=== PATIENT | female | born 1960 | race Hispanic/Latino ===

== ENCOUNTER 2018-05-13 15:03 | Emergency (ER) | payer BC ==
[2018-05-13 15:06] VITALS: BMI 21.0
--- NOTE | 2018-05-13 15:55 | ED PDOC ---
Arrival/HPI - General Chief Complaint: GI Problem Time Seen by Provider: 05/13/18 15:05 Historian: Patient - History of Present Illness Narrative History of Present Illness (Text): 05/13/18 15:55 A 58 year old female with a past medical history of hemorrhoids presents to the emergency department complaining of diarrhea and vaginal discharge since last Wednesday. Patient reports associated fevers and body aches. Patient reports going to an Urgent Care center on Wednesday for continued constant diarrhea episodes and was prescribed medication for the diarrhea which the patient sates worked. Patient notes that earlier in the week she felt a hemorrhoid and noticed a yellow green vaginal discharge but no itching noted. Today, patient states she started seeing blood and clots in the toilet and she is unsure whether the blood was from her vagina or rectum. Patient also noted pain upon bowel movement and notes no active bleeding. Patient denies any history of STDs. Patient denies any dysuria, nausea, vomiting, abdominal pain, joint pain, rashes, or any other complaints. PMD: José Miguel Smith Time/Duration: Other (few days) Symptom Onset: Gradual Symptom Course: Unchanged Activities at Onset: Light Context: Home Past Medical History - Provider Review Nursing Documentation Reviewed: Yes - Travel History Have you recently traveled outside [place] w/in the past 3 mons?: No - Infectious Disease Hx of Infectious Diseases: None - Tetanus Immunization Tetanus Immunization: Unknown - Reproductive Menopause: Yes - Past Medical History Past Medical History: No Previous - Psychiatric Hx Depression: No Hx Emotional Abuse: No Hx Physical Abuse: No Hx Substance Use: No - Surgical History Hx Section: Yes Hx Tonsillectomy: Yes - Anesthesia Hx Anesthesia: Yes Hx Anesthesia Reactions: No Hx Malignant Hyperthermia: No - Suicidal Assessment Feels Threatened In Home Enviroment: No Family/Social History - Physician Review Nursing Documentation Reviewed: Yes Family/Social History: No Known Family HX Smoking Status: Never Smoked Hx Alcohol Use: No Hx Substance Use: No Allergies/Home Meds Allergies/Adverse Reactions: Allergies No Known Allergies Allergy (Verified 06/14/13 16:13) Review of Systems - Physician Review All systems were reviewed & negative as marked: Yes - Review of Systems Constitutional: Fevers Gastrointestinal: Diarrhea. absent: Abdominal Pain, Nausea, Vomiting Genitourinary Female: Vaginal Discharge (yellow green discharge and blood with clots). absent: Dysuria Musculoskeletal: Myalgias. absent: Other (joint pain) Skin: absent: Rash Physical Exam Vital Signs Reviewed: Yes Blood Pressure: Normal Pulse: Regular Respiratory Rate: Normal Appearance: Positive for: Well-Appearing, Non-Toxic Mental Status: Positive for: Alert and Oriented X 3 - Systems Exam Head: Present: Atraumatic, Normocephalic Pupils: Present: PERRL Extroacular Muscles: Present: EOMI Conjunctiva: Present: Normal Respiratory/Chest: Present: Clear to Auscultation, Good Air Exchange. No: Respiratory Distress, Accessory Muscle Use Cardiovascular: Present: Regular Rate and Rhythm, Normal S1, S2. No: Murmurs Abdomen: No: Tenderness, Distention, Peritoneal Signs Genitourinary/Pelvic Exam: Present: Vaginal Discharge (speculum exam: yellow green discharge in vaginal vault), Other (hemorhoid in 3 oclock poisiton with blood surrounding hemorrhoid) Back: Present: Normal Inspection Upper Extremity: Present: Normal Inspection. No: Cyanosis, Edema Lower Extremity: Present: Normal Inspection. No: Edema Neurological: Present: GCS=15, CN II-XII Intact, Speech Normal Skin: Present: Warm, Dry, Normal Color. No: Rashes Psychiatric: Present: Alert, Oriented x 3, Normal Insight, Normal Concentration Medical Decision Making ED Course and Treatment: 05/13/18 15:55 Impression: 58 year old female presenting to the emergency room complaining of diarrhea and vaginal discharge Plan: -- Labs -- Chlamydia test -- Urine culture -- HCG -- Urinalysis -- Reassess and disposition Prior Visits: Notes and results from previous visits were reviewed. Progress Notes: - Scribe Statement The provider has reviewed the documentation as recorded by the Fran Ballesteros All medical record entries made by the Scribe were at my direction and personally dictated by me. I have reviewed the chart and agree that the record a ccurately reflects my personal performance of the history, physical exam, medical decision making, and the department course for this patient. I have also personally directed, reviewed, and agree with the discharge instructions and disposition. Disposition/Present on Arrival - Present on Arrival Any Indicators Present on Arrival: No History of DVT/PE: No History of Uncontrolled Diabetes: No Urinary Catheter: No History of Decub. Ulcer: No History Surgical Site Infection Following: None - Disposition Have Diagnosis and Disposition been Completed?: Yes Diagnosis: Diarrhea, Hypokalemia, Vaginal discharge, Hemorrhoids Disposition: HOME/ ROUTINE Disposition Time: 18:04 Patient Plan: Discharge Condition: STABLE Discharge Instructions (ExitCare): Diarrhea in Adolescents and Adults, Hemorrhoids (DC), Hypokalemia (DC), High Potassium Diet, Vaginal Discharge in Adults Additional Instructions: MADI WYATT, thank you for letting us take care of you today. Your provider was Manjula Olson MD and you were treated for BLEEDING. The emergency medical care you received today was directed at your acute symptoms. If you were prescribed any medication, please fill it and take as directed. It may take several days for your symptoms to resolve. Return to the Emergency Department if your symptoms worsen, do not improve, or if you have any other problems. Please contact your doctor in 2 days for a follow up appointment. Bring any paperwork you were given at discharge with you along with any medications you are taking to your follow up visit. Our treatment cannot replace ongoing medical care by a primary care provider outside of the emergency department. Thank you for allowing the [facility] team to be part of your care today. If you had an X-Ray or CT scan: A Radiologist will review the ED reading if any change in treatment is needed we will contact you. If you had a blood, urine, or wound culture: It will take several days for the results, if any change in treatment is needed we will contact you. If you had an STI test: It will take 48 hours for the results. Please call after 1 week if you have not heard back. Prescriptions: Hydrocortisone [Anusol-HC] 25 mg SC DAILY #15 sup Referrals: José Miguel Carlson MD [Family Provider] - Follow up with primary Forms: [email or web address] (Georgian), WORK NOTE
[2018-05-13 16:38] LABS: BASO # 0.11 K/mm3 (0.0-2.0); BASO % 1.6 % (0.0-3.0); EOS # 0.1 (0.0-0.7); EOS % 1.9 % (1.5-5.0); HEMOGLOBIN 12.2 g/dL (12.0-16.0); LYMPH # 2.4 (1.2-3.4); LYMPH % 35.1 % (22.0-35.0); MEAN CELL VOLUME 87.8 fl (80.0-105.0); MEAN CORPUSCULAR HEMOGLOBIN 30.3 pg (25.0-35.0); MEAN CORPUSCULAR HGB CONC 34.6 g/dl (31.0-37.0); MONO # 1.2 (0.1-0.6); MONO % 18.2 % (1.0-6.0); RBC 4.02 10^6/uL (3.5-6.1); RED CELL DISTRIBUTION WIDTH 11.8 % (11.5-14.5); WHITE BLOOD COUNT 6.8 10^3/uL (4.5-11.0)
[2018-05-13 16:46] LABS: PH,URINE 6.5 (4.7-8.0); URINE APPEARANCE SLIGHT-CLOUDY (CLEAR); URINE BILIRUBIN NEGATIVE (NEGATIVE); URINE BLOOD LARGE (NEGATIVE); URINE COLOR LIGHT YELLOW (YELLOW); URINE GLUCOSE (UA) NEGATIVE (NEGATIVE); URINE LEUKOCYTE ESTERASE LARGE Leu/uL (NEGATIVE); URINE PROTEIN NEGATIVE mg/dL (<30 mg/dL); URINE UROBILINOGEN 0.2 E.U./dL (<1 E.U./dL)
[2018-05-13 16:49] LABS: HCG,QUALITATIVE URINE NEGATIVE (NEGATIVE)
[2018-05-13 17:30] LABS: ALB/GLOB RATIO 1.3 (1.1-1.8); ALBUMIN 4.3 g/dL (3.0-4.8); ALT/SGPT 28 U/L (7-56); AST/SGOT 31 U/L (14-36); BLOOD UREA NITROGEN 14 mg/dL (7-21); CALCIUM 9.1 mg/dL (8.4-10.5); GFR NON-AFRICAN AMERICAN > 60
[2018-05-13] MEDS ORDERED: Potassium Chloride 20 mEq ER Tab PO STA ×2 (17:36→17:38)
[2018-05-13 17:38] VITALS: RESP 18
[2018-05-13 18:40] VITALS: BP 127/77; PULSE 85; TEMP 98; O2SAT 98
== END 2018-05-13 18:40 | disposition home or self-care (01) ==
LOC: ED 15:03
DX: R19.7 Diarrhea, unspecified (principal); E87.6 Hypokalemia; N89.8 Other specified noninflammatory disorders of vagina; K64.9 Unspecified hemorrhoids

== ENCOUNTER 2018-08-16 16:09 | Outpatient (CLI) | payer BC | END 2018-08-16 16:10 | disposition home or self-care (01) | LOC: RAD 16:09 ==

== ENCOUNTER 2018-08-22 13:21 | Emergency (ER) | payer BC ==
[2018-08-22 13:42] VITALS: BMI 21.7
[2018-08-22 13:45] VITALS: BP 122/73; PULSE 79; RESP 18; TEMP 97.6; O2SAT 96
[2018-08-22] MEDS ORDERED: Lidocaine 5% Patch TD ONE (13:56)
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
--- NOTE | 2018-08-22 14:57 | CT ---
Date of service: 08/22/2018 PROCEDURE: CT Lumbar Spine without contrast HISTORY: s/p fall lower back pain COMPARISON: None available. TECHNIQUE: Axial computed tomography images were obtained of the lumbar spine without the use of intravenous contrast. Coronal and sagittal reformatted images were created and reviewed. Radiation dose: Total exam DLP = 325.22 mGy-cm. This CT exam was performed using one or more of the following dose reduction techniques: Automated exposure control, adjustment of the mA and/or kV according to patient size, and/or use of iterative reconstruction technique. FINDINGS: VERTEBRAE: Unremarkable. No fracture. Normal alignment. DISCS/SPINAL CANAL/NEURAL FORAMINA: L1-2: Unremarkable. L2-3: Unremarkable. L3-4: Unremarkable. L4-5: Moderate disc bulge L5-S1: There is disc degeneration with loss of disc height, vacuum disc and calcification of the outer fibers of the annulus. There is mild foraminal stenosis. PARASPINAL SOFT TISSUES: Unremarkable. OTHER FINDINGS: None. IMPRESSION: L4-5: Moderate disc bulge L5-S1: There is disc degeneration with loss of disc height, vacuum disc and calcification of the outer fibers of the annulus. There is mild foraminal stenosis. No vertebral compression fracture
== END 2018-08-22 15:46 | disposition home or self-care (01) ==
LOC: ED 13:21
DX: M54.9 Dorsalgia, unspecified (principal)

== ENCOUNTER 2018-09-02 09:13 | Emergency (ER) | payer BC ==
[2018-09-02 09:13] VITALS: BMI 21.7
[2018-09-02 09:28] VITALS: RESP 18; TEMP 97.9
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
[2018-09-02 10:49] LABS: BASO # 0.01 K/mm3 (0.0-2.0); BASO % 0.2 % (0.0-3.0); EOS % 0.2 % (1.5-5.0); HEMOGLOBIN 12.4 g/dL (12.0-16.0); LYMPH # 0.7 (1.2-3.4); LYMPH % 12.8 % (22.0-35.0); MEAN CELL VOLUME 90.1 fl (80.0-105.0); MEAN CORPUSCULAR HEMOGLOBIN 29.9 pg (25.0-35.0); MEAN CORPUSCULAR HGB CONC 33.2 g/dl (31.0-37.0); MEAN PLATELET VOLUME 9.4 fl (7.0-11.0); MONO # 0.2 (0.1-0.6); MONO % 3.1 % (1.0-6.0); RBC 4.15 10^6/uL (3.5-6.1); RED CELL DISTRIBUTION WIDTH 12.3 % (11.5-14.5); WHITE BLOOD COUNT 5.2 10^3/uL (4.5-11.0)
[2018-09-02] MEDS ORDERED: Morphine 2 mg/ml ISec IVP STA (10:53)
[2018-09-02 10:59] LABS: ALB/GLOB RATIO 1.6 (1.1-1.8); ALBUMIN 4.4 g/dL (3.0-4.8); ALT/SGPT 68 U/L (7-56); AST/SGOT 45 U/L (14-36); BLOOD UREA NITROGEN 16 mg/dL (7-21); CALCIUM 9.2 mg/dL (8.4-10.5); GFR NON-AFRICAN AMERICAN > 60
[2018-09-02 13:40] VITALS: BP 130/77; PULSE 100; O2SAT 98
== END 2018-09-02 13:45 | disposition home or self-care (01) ==
LOC: ED 09:13
DX: R11.2 Nausea with vomiting, unspecified (principal); M54.9 Dorsalgia, unspecified
CPT/HCPCS: 80053; 85025; 96374; 96375; 99283; C9113; J1885; J2270; J2405